=== PATIENT | female | born 1940 | race Caucasian/White ===

== ENCOUNTER 2018-03-05 11:43 | Outpatient (CLI) | payer MEDICARE, BC ==
[2018-03-05] VITALS (21 sets, daily range): BP systolic 64–140; BP diastolic 50–93
== END 2018-03-05 23:59 | disposition home or self-care (01) ==
LOC: CARD DIAG 11:43
PROVIDERS: ATTEND Internal Medicine Cardiovascular Disease
DX: R00.0 Tachycardia, unspecified (principal); R55 Syncope and collapse
CPT/HCPCS: 93660